=== PATIENT | male | born 1970 | race Caucasian/White ===

== ENCOUNTER 2021-03-02 13:07 | Inpatient (IN) ==
[2021-03-02 13:28] LABS: Basophils # 0.1 10*3/uL (0.0-0.2); Basophils % 0.9 % (0.0-0.8); Eosinophils # 0.5 10*3/uL (0.0-0.87); Eosinophils % 5.5 % (0.00-10.9); Hematocrit 31.6 VOL% (42.0-52.0); Hemoglobin 10.1 GM/DL (14.0-18.0); Immature Granulocytes Absolute 0.09 #; Lymphocytes # 0.5 10*3/uL (1.4-4.0); Lymphocytes % 5.7 % (21.2-54.2); Mean Corpuscular Volume 92.1 FL (87-102); Mean Platelet Volume 10.5 FL (9.6-12.0); Monocytes % 6.9 % (1.7-12.7); Platelet Count 295 T/CUMM (130-400); Red Blood Count 3.43 MC/CUMM (3.8-5.5); Red Cell Distribution Width 14.6 % (9.3-17.3); White Blood Count 9.3 T/CUMM (4-12)
[2021-03-02] MEDS ORDERED: FUROSEMIDE 100 MG/10 ML VIAL IV STA (13:45)
[2021-03-02 14:01] LABS: Albumin 2.9 G/DL (3.4-5.0); Bilirubin,Total 0.8 MG/DL (0.2-1.0); Calcium 6.6 MG/DL (8.5-10.1); Osmolality,Calculated 316.5 MOS/KG (273-304); Potassium 4.4 MMOL/L (3.5-5.1); Total Protein 7.1 G/DL (6.4-8.2)
[2021-03-02] MEDS ORDERED: DEXTROSE 50% 25 GM/50 ML VIAL IV PRN (15:18)
[2021-03-02] MEDS ORDERED: ONDANSETRON 4 MG/2 ML VIAL IV PRN (15:18)
[2021-03-02] MEDS ORDERED: ZALEPLON 5 MG CAPSULE PO PRN (15:18)
[2021-03-02] MEDS ORDERED: ACETAMINOPHEN 325 MG TABLET PO PRN (15:18)
[2021-03-02] MEDS ORDERED: GLUCAGON 1 MG VIAL IM PRN (15:18)
[2021-03-02 17:44] LABS: Amorphous Crystals,Urine Occasional /HPF (Few); Bacteria,Urine Occasional /HPF (Few); Bilirubin,Urine Negative (Negative); Blood, Urine Moderate mg/dL (Negative); Glucose,Urine (UA) Negative (Negative); Ketones,Urine Negative (Negative); Mucus,Urine Occasional /LPF (Occasional); Nitrite,Urine Negative (Negative); Protein,Urine >=500 MG/DL; RBC,Urine 1 /HPF (0-4); Squamous Epithelial Cell,Urine Occasional /HPF (0-10); Urine Appearance CLOUDY (Clear); Urine Color Yellow (Yellow); Urine Specific Gravity 1.011 (1.001-1.035); Urine Urobilinogen < 2.0 EU/DL (0.2-1.0); WBC,Urine 2 /HPF (0-6)
[2021-03-02] MEDS: INSULIN REGULAR 100 UNIT/ML SUBCUT SCH ×2 (19:04→20:52)
[2021-03-02] MEDS: HEPARIN 5,000 UNIT/1 ML VIAL SUBCUT SCH (19:12)
[2021-03-03] MEDS: HEPARIN 5,000 UNIT/1 ML VIAL SUBCUT SCH ×2 (04:15→17:02)
[2021-03-03 05:59] LABS: Basophils # 0.1 10*3/uL (0.0-0.2); Basophils % 1.1 % (0.0-0.8); Eosinophils # 0.8 10*3/uL (0.0-0.87); Eosinophils % 9.2 % (0.00-10.9); Hematocrit 29.3 VOL% (42.0-52.0); Hemoglobin 9.2 GM/DL (14.0-18.0); Immature Granulocytes % 1.4 %; Immature Granulocytes Absolute 0.12 #; Lymphocytes # 0.6 10*3/uL (1.4-4.0); Lymphocytes % 6.9 % (21.2-54.2); Mean Corpuscular HGB Conc 31.4 GM/DL (32-36); Mean Corpuscular Volume 92.7 FL (87-102); Mean Platelet Volume 10.8 FL (9.6-12.0); Monocytes % 8.1 % (1.7-12.7); Neutrophils % 73.3 % (38.7-73.9); Platelet Count 270 T/CUMM (130-400); Red Blood Count 3.16 MC/CUMM (3.8-5.5); Red Cell Distribution Width 14.6 % (9.3-17.3); White Blood Count 8.8 T/CUMM (4-12)
[2021-03-03 06:41] LABS: Albumin 2.7 G/DL (3.4-5.0); Bilirubin,Total 0.8 MG/DL (0.2-1.0); Calcium 6.6 MG/DL (8.5-10.1); Osmolality,Calculated 317.5 MOS/KG (273-304); Potassium 4.4 MMOL/L (3.5-5.1); Risk Ratio 2.49; Total Protein 6.4 G/DL (6.4-8.2); VLDL CHOLESTEROL 27.2 MG/DL
[2021-03-03] MEDS: ATORVASTATIN 80 MG TABLET PO SCH (08:30)
[2021-03-03] MEDS: amLODIPine 10 MG TABLET PO SCH (08:30)
[2021-03-03] MEDS: INSULIN REGULAR 100 UNIT/ML SUBCUT SCH ×4 (08:44→21:16)
[2021-03-03] MEDS ORDERED: STERILE WATER IV SCH ×2 (11:00→13:30)
[2021-03-03] MEDS ORDERED: SODIUM BICARB IV SCH ×2 (11:00→13:30)
[2021-03-03] MEDS: SODIUM BICARB INJ 150 MEQ in STERILE WATER INJ 850 ML IV SCH (14:22)
[2021-03-03 17:15] LABS: Bacteria,Urine Occasional /HPF (Few); Bilirubin,Urine Negative (Negative); Blood, Urine Moderate mg/dL (Negative); Glucose,Urine (UA) Negative (Negative); Ketones,Urine Negative (Negative); Nitrite,Urine Negative (Negative); Protein,Urine >=500 MG/DL; RBC,Urine 1 /HPF (0-4); Squamous Epithelial Cell,Urine Occasional /HPF (0-10); Urine Appearance Slightly Hazy (Clear); Urine Color Yellow (Yellow); Urine Specific Gravity 1.012 (1.001-1.035); Urine Urobilinogen < 2.0 EU/DL (0.2-1.0); WBC,Urine 7 /HPF (0-6)
[2021-03-04] MEDS: HEPARIN 5,000 UNIT/1 ML VIAL SUBCUT SCH (04:00)
[2021-03-04] MEDS: SODIUM BICARB INJ 150 MEQ in STERILE WATER INJ 850 ML IV SCH (05:17)
[2021-03-04 05:28] LABS: Basophils # 0.1 10*3/uL (0.0-0.2); Eosinophils # 0.7 10*3/uL (0.0-0.87); Eosinophils % 8.1 % (0.00-10.9); Hematocrit 28.1 VOL% (42.0-52.0); Hemoglobin 9.1 GM/DL (14.0-18.0); Immature Granulocytes Absolute 0.08 #; Lymphocytes # 0.7 10*3/uL (1.4-4.0); Lymphocytes % 8.3 % (21.2-54.2); Mean Corpuscular HGB Conc 32.4 GM/DL (32-36); Mean Corpuscular Volume 91.5 FL (87-102); Mean Platelet Volume 11.1 FL (9.6-12.0); Monocytes % 8.5 % (1.7-12.7); Neutrophils % 73.1 % (38.7-73.9); Platelet Count 244 T/CUMM (130-400); Red Blood Count 3.07 MC/CUMM (3.8-5.5); Red Cell Distribution Width 14.7 % (9.3-17.3)
[2021-03-04 06:03] LABS: Albumin 2.6 G/DL (3.4-5.0); Bilirubin,Total 0.6 MG/DL (0.2-1.0); Calcium 6.2 MG/DL (8.5-10.1); Osmolality,Calculated 322.4 MOS/KG (273-304); Potassium 4.4 MMOL/L (3.5-5.1); Total Protein 6.4 G/DL (6.4-8.2)
[2021-03-04] MEDS: INSULIN REGULAR 100 UNIT/ML SUBCUT SCH ×2 (07:18→12:20)
[2021-03-04] MEDS: ATORVASTATIN 80 MG TABLET PO SCH (08:35)
[2021-03-04] MEDS: amLODIPine 10 MG TABLET PO SCH (08:35)
[2021-03-04 12:14] VITALS: BP 139/72
[2021-03-04] MEDS ORDERED: CALCIUM (CARBONATE) 500 MG TABLET PO SCH (15:00)
[2021-03-04] MEDS ORDERED: SODIUM BICARBONATE 650 MG TABLET PO SCH (15:00)
[2021-03-04] MEDS ORDERED: FUROSEMIDE 80 MG TABLET PO SCH (16:00)
[2021-03-05] MEDS ORDERED: metOLazone 5 MG TABLET PO SCH (09:00)
== END 2021-03-04 13:49 | disposition home or self-care (01) | DRG 683 ==
LOC: N.ED 13:07 → N.EDINP 15:19 → SUATTDRO 15:19 → N.EDINP 17:50 → N.5E 18:25
PROVIDERS: ADMIT Internal Medicine; ATTEND Internal Medicine

== ENCOUNTER 2021-03-24 06:15 | Inpatient (IN) ==
[2021-03-21 12:23] LABS: Basophils # 0.1 10*3/uL (0.0-0.2); Basophils % 0.6 % (0.0-0.8); Eosinophils # 0.6 10*3/uL (0.0-0.87); Eosinophils % 6.2 % (0.00-10.9); Hematocrit 28.2 VOL% (42.0-52.0); Hemoglobin 8.9 GM/DL (14.0-18.0); Immature Granulocytes % 0.8 %; Immature Granulocytes Absolute 0.08 #; Lymphocytes # 0.5 10*3/uL (1.4-4.0); Lymphocytes % 4.8 % (21.2-54.2); Mean Corpuscular HGB Conc 31.6 GM/DL (32-36); Mean Corpuscular Volume 93.7 FL (87-102); Mean Platelet Volume 11.2 FL (9.6-12.0); Monocytes % 10.2 % (1.7-12.7); Neutrophils % 77.4 % (38.7-73.9); Platelet Count 295 T/CUMM (130-400); Red Blood Count 3.01 MC/CUMM (3.8-5.5); Red Cell Distribution Width 13.5 % (9.3-17.3); White Blood Count 9.5 T/CUMM (4-12)
[2021-03-21 13:01] LABS: Calcium 5.9 MG/DL (8.5-10.1); Osmolality,Calculated 332.8 MOS/KG (273-304)
[2021-03-21 13:02] LABS: Potassium 5.5 MMOL/L (3.5-5.1)
[2021-03-21 15:09] LABS: Eosinophils 4 % (0-10); Lymphocytes 2 % (20-55); Segmented Neutrophils 94 % (50-85); Total Cells Counted 100
[2021-03-21 15:11] LABS: Platelet Estimate Increased
[2021-03-21 15:13] LABS: Burr Cells Few; Toxic Granulation 1+
[2021-03-24 07:08] LABS: Hematocrit 28.6 VOL% (42.0-52.0)
[2021-03-24] MEDS ORDERED: SODIUM CHLORIDE 0.9% 250 ML IV SCH (08:00)
[2021-03-24] MEDS ORDERED: HEPARIN 5,000 UNIT/1 ML VIAL ONE (10:05)
[2021-03-24] MEDS ORDERED: BUPIVACAINE MPF 0.25% 30 ML VIAL ONE (10:05)
[2021-03-24] MEDS ORDERED: LIDOCAINE 1%/EPI INJ 20 ML VIAL ONE (10:06)
[2021-03-24] MEDS ORDERED: HEPARIN 10,000 UNIT/10 ML VIAL ONE (10:11)
[2021-03-24] MEDS ORDERED: TISSUE ADHESIVE 1 EACH APPLICATOR TOP ONE (11:14)
[2021-03-24] MEDS ORDERED: ACETAMINOPHEN 325 MG TABLET PO PRN (11:18)
[2021-03-24 13:04] LABS: Hepatitis B Core IgM Quant 0.13 Index; Hepatitis B Surface Ag Quant < 0.10 Index; Hepatitis B Surface Ag Result Non-Reactive (NonReactive); Hepatitis C Virus Ab Quant 0.11 Index; Hepatitis C Virus Ab Result Non-Reactive (NonReactive)
[2021-03-24] MEDS ORDERED: HEPARIN 10,000 UNIT/10 ML VIAL IV PRN (15:25)
[2021-03-24] MEDS ORDERED: DEXTROSE 50% 25 GM/50 ML VIAL IV PRN (15:38)
[2021-03-24] MEDS ORDERED: GLUCAGON 1 MG VIAL IM PRN (15:38)
[2021-03-24] MEDS: LACTATED RINGERS 1,000 ML IV SCH (18:52)
[2021-03-24] MEDS: INSULIN LISPRO 100 UNIT/ML SUBCUT SCH ×2 (18:53→20:48)
[2021-03-25] MEDS: LACTATED RINGERS 1,000 ML IV SCH ×2 (04:45→10:52)
[2021-03-25 06:51] LABS: Basophils # 0.1 10*3/uL (0.0-0.2); Basophils % 0.7 % (0.0-0.8); Eosinophils # 0.2 10*3/uL (0.0-0.87); Eosinophils % 1.7 % (0.00-10.9); Hematocrit 29.3 VOL% (42.0-52.0); Hemoglobin 9.3 GM/DL (14.0-18.0); Immature Granulocytes % 0.6 %; Immature Granulocytes Absolute 0.06 #; Lymphocytes # 0.4 10*3/uL (1.4-4.0); Lymphocytes % 4.4 % (21.2-54.2); Mean Corpuscular HGB Conc 31.7 GM/DL (32-36); Mean Corpuscular Volume 90.4 FL (87-102); Mean Platelet Volume 11.4 FL (9.6-12.0); Monocytes % 10.3 % (1.7-12.7); Neutrophils % 82.3 % (38.7-73.9); Platelet Count 315 T/CUMM (130-400); Red Blood Count 3.24 MC/CUMM (3.8-5.5); Red Cell Distribution Width 13.7 % (9.3-17.3); White Blood Count 9.6 T/CUMM (4-12)
[2021-03-25 07:25] LABS: Lymphocytes 3 % (20-55); Segmented Neutrophils 92 % (50-85); Total Cells Counted 100
[2021-03-25 07:26] LABS: Calcium 6.6 MG/DL (8.5-10.1); Osmolality,Calculated 312.2 MOS/KG (273-304); Potassium 4.5 MMOL/L (3.5-5.1)
[2021-03-25 07:26] LABS: Hypochromasia Slight; Ovalocytes Slight
[2021-03-25 07:27] LABS: Platelet Estimate Normal
[2021-03-25] MEDS: ATORVASTATIN 80 MG TABLET PO SCH (08:13)
[2021-03-25] MEDS: PANTOPRAZOLE 40 MG TABLET PO SCH (08:13)
[2021-03-25] MEDS: ONDANSETRON 4 MG/2 ML VIAL IV PRN ×3 (08:13→22:17)
[2021-03-25] MEDS: INSULIN LISPRO 100 UNIT/ML SUBCUT SCH ×4 (08:59→22:17)
[2021-03-25] MEDS ORDERED: amLODIPine 10 MG TABLET PO SCH (09:00)
[2021-03-25] MEDS ORDERED: ASPIRIN CHEW 81 MG TABLET PO ONE ×2 (12:03→12:04)
[2021-03-25] MEDS ORDERED: METOPROLOL TARTRATE 5 MG/5 ML VIAL IV ONE ×4 (12:11→12:30)
[2021-03-25] MEDS ORDERED: ASPIRIN 325 MG TABLET PO ONE (12:12)
[2021-03-25] MEDS ORDERED: ASPIRIN EC 325 MG TABLET PO ONE ×2 (13:00→13:02)
[2021-03-25 13:05] LABS: CKMB % 0.8 %; Troponin I < 0.015 NG/ML (0.00-0.045)
[2021-03-25] MEDS ORDERED: ENOXAPARIN 120 MG/0.8 ML SYRINGE SUBCUT ONE (13:08)
[2021-03-25] MEDS: COLCHICINE 0.6 MG CAPSULE PO SCH ×2 (14:19→22:17)
[2021-03-25] MEDS ORDERED: ALBUMIN 25% 12.5 GM/50 ML VIAL IV ONE ×2 (16:19→17:00)
[2021-03-25 16:47] LABS: Calcium 7.3 MG/DL (8.5-10.1); Osmolality,Calculated 296.1 MOS/KG (273-304); Potassium 4.5 MMOL/L (3.5-5.1)
[2021-03-25] MEDS ORDERED: SODIUM CHLORIDE 0.9% 300 ML IV ONE (17:01)
[2021-03-25 17:28] LABS: CKMB % 0.8 %; Troponin I < 0.015 NG/ML (0.00-0.045)
[2021-03-25] MEDS: METOPROLOL TARTRATE 25 MG TABLET PO SCH (23:10)
[2021-03-26] MEDS ORDERED: SODIUM CHLORIDE 0.9% 250 ML IV ONE ×4 (01:12→16:11)
[2021-03-26 05:22] LABS: Basophils % 0.2 % (0.0-0.8); Eosinophils % 0.1 % (0.00-10.9); Hematocrit 29.1 VOL% (42.0-52.0); Hemoglobin 9.1 GM/DL (14.0-18.0); Immature Granulocytes % 1.2 %; Immature Granulocytes Absolute 0.15 #; Lymphocytes # 0.5 10*3/uL (1.4-4.0); Lymphocytes % 4.4 % (21.2-54.2); Mean Corpuscular HGB Conc 31.3 GM/DL (32-36); Mean Corpuscular Volume 93.3 FL (87-102); Mean Platelet Volume 12.1 FL (9.6-12.0); Monocytes % 8.8 % (1.7-12.7); NRBC # 0.02 10*3/uL; Neutrophils % 85.3 % (38.7-73.9); Platelet Count 307 T/CUMM (130-400); Red Blood Count 3.12 MC/CUMM (3.8-5.5); White Blood Count 12.2 T/CUMM (4-12)
[2021-03-26 05:46] LABS: Calcium 6.9 MG/DL (8.5-10.1); Osmolality,Calculated 296.2 MOS/KG (273-304); Potassium 4.8 MMOL/L (3.5-5.1)
[2021-03-26 06:01] LABS: Troponin I 0.026 NG/ML (0.00-0.045)
[2021-03-26] MEDS: LACTATED RINGERS 1,000 ML IV SCH ×4 (06:10→21:37)
[2021-03-26 06:20] LABS: Anisocytosis 1+; Burr Cells Few; Macrocytosis Slight; Platelet Estimate Normal
[2021-03-26] MEDS: ATORVASTATIN 80 MG TABLET PO SCH (09:15)
[2021-03-26] MEDS: INSULIN LISPRO 100 UNIT/ML SUBCUT SCH ×4 (09:15→23:24)
[2021-03-26] MEDS: PANTOPRAZOLE 40 MG TABLET PO SCH (09:15)
[2021-03-26] MEDS: METOPROLOL TARTRATE 25 MG TABLET PO SCH (09:15)
[2021-03-26] MEDS: COLCHICINE 0.6 MG CAPSULE PO SCH ×2 (09:15→23:23)
[2021-03-26] MEDS ORDERED: WARFARIN 5 MG TABLET PO ONE (12:31)
[2021-03-26] MEDS ORDERED: ALBUMIN 5% 12.5 GM/250 ML VIAL IV ONE (16:30)
[2021-03-26] MEDS ORDERED: SODIUM CHLORIDE 0.9% 1,000 ML IV ONE ×2 (17:35→18:35)
[2021-03-26] MEDS ORDERED: WARFARIN 5 MG TABLET PO SCH (18:00)
[2021-03-26] MEDS: PHENYLEPHRINE DRIP 40 MG/250 ML PREMIX IV PRN (20:51)
[2021-03-26] MEDS: METOPROLOL SUCCINATE XL 25 MG TABLET PO SCH (23:24)
[2021-03-27] MEDS ORDERED: VECURONIUM 10 MG VIAL IV ONE ×2 (01:47→01:53)
[2021-03-27] MEDS ORDERED: ETOMIDATE 20 MG/10 ML VIAL IV ONE ×2 (01:48→01:49)
[2021-03-27] MEDS ORDERED: HYDROCORTISONE 100 MG VIAL IV ONE (02:05)
[2021-03-27] MEDS ORDERED: HYDROCORTISONE 100 MG VIAL ONE (02:05)
[2021-03-27] MEDS ORDERED: NOREPINEPHRINE 4 MG/4 ML VIAL IV ONE (02:07)
[2021-03-27] MEDS ORDERED: NOREPINEPHRINE 8 MG in SODIUM CHLORIDE 0.9% 242 ML IV PRN (02:07)
[2021-03-27 02:32] LABS: Basophils # 0.1 10*3/uL (0.0-0.2); Basophils % 0.3 % (0.0-0.8); Eosinophils % 0.1 % (0.00-10.9); Hematocrit 33.2 VOL% (42.0-52.0); Hemoglobin 10.3 GM/DL (14.0-18.0); Immature Granulocytes % 2.9 %; Lymphocytes # 1.2 10*3/uL (1.4-4.0); Lymphocytes % 7.2 % (21.2-54.2); Monocytes % 10.5 % (1.7-12.7); NRBC # 0.16 10*3/uL; Platelet Count 349 T/CUMM (130-400); Red Blood Count 3.46 MC/CUMM (3.8-5.5); Red Cell Distribution Width 14.4 % (9.3-17.3)
[2021-03-27] MEDS ORDERED: DIGOXIN 0.5 MG/2 ML AMP ONE (02:50)
[2021-03-27] MEDS ORDERED: DIGOXIN 0.5 MG/2 ML AMP IV ONE ×2 (02:51→15:51)
[2021-03-27 03:07] LABS: Albumin 2.9 G/DL (3.4-5.0); Bilirubin,Direct 0.62 MG/DL (0.0-0.20); Bilirubin,Indirect 0.6 MG/DL (0.0-1.0); Bilirubin,Total 1.2 MG/DL (0.2-1.0); Total Protein 6.9 G/DL (6.4-8.2)
[2021-03-27 03:09] LABS: Allen Test Positive; Pt O2 Delivery Device Ventilator
[2021-03-27 03:12] LABS: ABG Base Excess -11.8 MMOL/L (-2.5-2.5); ABG Oxygen Saturation 89.1 % (95-100); ABG PCO2 47.4 MM HG (35-48); ABG PO2 75.5 MM HG (80-95); ABG TCO2 15.9 MMOL/L (23-27)
[2021-03-27 03:13] LABS: ABG PH 7.158 (7.35-7.45)
[2021-03-27] MEDS ORDERED: SODIUM BICARBONATE 50 MEQ/50 ML VIAL IV ONE ×3 (03:19→08:24)
[2021-03-27 03:22] LABS: Alanine Aminotransferase 2797 U/L (16-61); Albumin 2.8 G/DL (3.4-5.0); Alkaline Phosphatase 504 U/L (45-117); Aspartate Amino Transferase 4836 U/L (0-37); Blood Urea Nitrogen 86 MG/DL (7-18); CKMB % 1.4 %; Calcium 7.4 MG/DL (8.5-10.1); Carbon Dioxide 14 MMOL/L (21-32); Estimated Glom Filtration Rate 6 ML/MIN; Glucose 152 MG/DL (74-106); Osmolality,Calculated 303.7 MOS/KG (273-304); Potassium 4.8 MMOL/L (3.5-5.1); Sodium 138 MMOL/L (136-145); Troponin I < 0.015 NG/ML (0.00-0.045)
[2021-03-27] MEDS ORDERED: EPINEPHrine 1 MG/10 ML SYRINGE ONE (03:31)
[2021-03-27] MEDS ORDERED: CALCIUM CHLORIDE 1,000 MG/10 ML VIAL IV ONE (03:31)
[2021-03-27] MEDS ORDERED: SODIUM BICARBONATE 50 MEQ/50 ML SYRINGE IV ONE (03:31)
[2021-03-27 04:15] LABS: Glucose,Pericardial Fluid 129 MG/DL
[2021-03-27] MEDS: MIDAZOLAM 100 MG in SODIUM CHLORIDE 0.9% 80 ML IV PRN ×2 (05:26→14:01)
[2021-03-27 06:18] LABS: Allen Test Positive; Pt O2 Delivery Device Ventilator
[2021-03-27 06:19] LABS: ABG Base Excess -8.1 MMOL/L (-2.5-2.5); ABG HCO3 17.8 MMOL/L (20-26); ABG Oxygen Saturation 93.5 % (95-100); ABG PCO2 37.7 MM HG (35-48); ABG PH 7.286 (7.35-7.45); ABG PO2 78.8 MM HG (80-95); ABG TCO2 16.6 MMOL/L (23-27)
[2021-03-27 07:59] LABS: Albumin 2.6 G/DL (3.4-5.0); Bilirubin,Total 1.4 MG/DL (0.2-1.0); Calcium 6.6 MG/DL (8.5-10.1); Osmolality,Calculated 309.5 MOS/KG (273-304); Total Protein 6.7 G/DL (6.4-8.2)
[2021-03-27] MEDS: INSULIN LISPRO 100 UNIT/ML SUBCUT SCH ×4 (08:56→22:14)
[2021-03-27] MEDS: PANTOPRAZOLE 40 MG TABLET PO SCH (08:57)
[2021-03-27] MEDS: ATORVASTATIN 80 MG TABLET PO SCH (08:57)
[2021-03-27] MEDS: COLCHICINE 0.6 MG CAPSULE PO SCH (08:57)
[2021-03-27] MEDS: METOPROLOL SUCCINATE XL 25 MG TABLET PO SCH (08:57)
[2021-03-27] MEDS: PHENYLEPHRINE DRIP 40 MG/250 ML PREMIX IV PRN (09:20)
[2021-03-27 09:23] LABS: INR 2.5; PT Patient Result 25.9 SECS (10.5-12.0); Partial Thromboplastin Time 39.6 SECS (23.9-33.8)
[2021-03-27 10:11] LABS: ABG Base Excess -6.3 MMOL/L (-2.5-2.5); ABG HCO3 19.2 MMOL/L (20-26); ABG Oxygen Saturation 97.4 % (95-100); ABG PCO2 30.6 MM HG (35-48); ABG PH 7.375 (7.35-7.45); ABG PO2 99.2 MM HG (80-95); ABG TCO2 16.3 MMOL/L (23-27); Allen Test Positive; Pt O2 Delivery Device Ventilator
[2021-03-27] MEDS: METOPROLOL TARTRATE 25 MG TABLET PO SCH (15:58)
[2021-03-27] MEDS ORDERED: SODIUM CHLORIDE 0.9% 1,000 ML IV SCH (16:30)
[2021-03-28] MEDS: COLCHICINE 0.6 MG CAPSULE PO SCH ×3 (00:14→22:28)
[2021-03-28] MEDS: METOPROLOL TARTRATE 25 MG TABLET PO SCH (00:29)
[2021-03-28] MEDS: MIDAZOLAM 100 MG in SODIUM CHLORIDE 0.9% 80 ML IV PRN ×3 (02:16→19:00)
[2021-03-28] MEDS: PHENYLEPHRINE DRIP 40 MG/250 ML PREMIX IV PRN ×2 (02:17→13:06)
[2021-03-28 04:24] LABS: Basophils % 0.2 % (0.0-0.8); Eosinophils % 0.1 % (0.00-10.9); Hematocrit 34.5 VOL% (42.0-52.0); Hemoglobin 11.3 GM/DL (14.0-18.0); Immature Granulocytes % 1.5 %; Immature Granulocytes Absolute 0.26 #; Lymphocytes # 0.6 10*3/uL (1.4-4.0); Lymphocytes % 3.2 % (21.2-54.2); Mean Corpuscular HGB Conc 32.8 GM/DL (32-36); Mean Corpuscular Volume 90.8 FL (87-102); Mean Platelet Volume 11.8 FL (9.6-12.0); Monocytes % 8.6 % (1.7-12.7); NRBC # 0.47 10*3/uL; Neutrophils % 86.4 % (38.7-73.9); Platelet Count 397 T/CUMM (130-400); Red Cell Distribution Width 14.6 % (9.3-17.3); White Blood Count 17.7 T/CUMM (4-12)
[2021-03-28 04:26] LABS: ABG Base Excess -8.8 MMOL/L (-2.5-2.5); ABG HCO3 15.2 MMOL/L (20-26); ABG Oxygen Saturation 96.5 % (95-100); ABG PCO2 27.5 MM HG (35-48); ABG PH 7.361 (7.35-7.45); ABG PO2 97.6 MM HG (80-95); ABG TCO2 16.1 MMOL/L (23-27); Allen Test Positive; Pt O2 Delivery Device Ventilator
[2021-03-28 04:49] LABS: Hypochromasia Slight; Lymphocytes 5 % (20-55); Nucleated Red Blood Cells 3 (0-5); Segmented Neutrophils 87 % (50-85); Total Cells Counted 100
[2021-03-28 04:50] LABS: Microcytosis 1+; Polychromasia Slight
[2021-03-28 04:51] LABS: Platelet Estimate Normal
[2021-03-28 05:14] LABS: PT Patient Result 62.7 SECS (10.5-12.0)
[2021-03-28 05:15] LABS: INR 6.4
[2021-03-28 05:36] LABS: Albumin 2.2 G/DL (3.4-5.0); Bilirubin,Total 0.9 MG/DL (0.2-1.0); Osmolality,Calculated 317.3 MOS/KG (273-304); Potassium 4.5 MMOL/L (3.5-5.1); Thyroid Stimulating Hormone 3.91 uIU/ml (0.358-3.74); Total Protein 6.1 G/DL (6.4-8.2)
[2021-03-28 05:39] LABS: Calcium 5.3 MG/DL (8.5-10.1)
[2021-03-28] MEDS ORDERED: CALCIUM GLUCONATE 1,000 MG in SODIUM CHLORIDE 0.9% 100 ML IV ONE (06:12)
[2021-03-28] MEDS ORDERED: SODIUM CHLORIDE 0.9% 500 ML IV ONE (08:17)
[2021-03-28] MEDS: INSULIN LISPRO 100 UNIT/ML SUBCUT SCH ×3 (08:56→18:03)
[2021-03-28] MEDS: ATORVASTATIN 80 MG TABLET PO SCH (08:58)
[2021-03-28] MEDS: PANTOPRAZOLE 40 MG TABLET PO SCH (08:58)
[2021-03-28] MEDS ORDERED: CALCIUM GLUCONATE 2,000 MG in SODIUM CHLORIDE 0.9% 100 ML IV ONE (10:00)
[2021-03-28] MEDS: CITALOPRAM 20 MG TABLET PO SCH (11:33)
[2021-03-28] MEDS: PHYTONADIONE 5 MG/5 ML ORAL.SYR PO SCH (11:33)
[2021-03-28] MEDS: ALBUMIN 25% 25 GM/100 ML VIAL IV ONE (11:35)
[2021-03-28] MEDS ORDERED: SODIUM CHLORIDE 0.9% 500 ML IV PRN (17:30)
[2021-03-28] MEDS: DEXMEDETOMIDINE 400 MCG in SODIUM CHLORIDE 0.9% 96 ML IV PRN (22:11)
[2021-03-29] MEDS: INSULIN LISPRO 100 UNIT/ML SUBCUT SCH ×4 (02:14→18:31)
[2021-03-29] MEDS: PHENYLEPHRINE DRIP 40 MG/250 ML PREMIX IV PRN ×2 (02:15→15:19)
[2021-03-29 04:46] LABS: Allen Test Positive; Pt O2 Delivery Device Ventilator
[2021-03-29 04:47] LABS: ABG Base Excess -10.7 MMOL/L (-2.5-2.5); ABG Oxygen Saturation 98.9 % (95-100); ABG PCO2 24.6 MM HG (35-48); ABG TCO2 12.4 MMOL/L (23-27)
[2021-03-29 05:18] LABS: Basophils % 0.2 % (0.0-0.8); Eosinophils # 0.2 10*3/uL (0.0-0.87); Eosinophils % 1.8 % (0.00-10.9); Hematocrit 32.8 VOL% (42.0-52.0); Immature Granulocytes % 1.6 %; Lymphocytes # 0.6 10*3/uL (1.4-4.0); Lymphocytes % 4.8 % (21.2-54.2); Mean Corpuscular HGB Conc 30.5 GM/DL (32-36); Mean Corpuscular Volume 95.1 FL (87-102); Mean Platelet Volume 11.4 FL (9.6-12.0); Monocytes % 9.4 % (1.7-12.7); NRBC # 0.52 10*3/uL; Neutrophils % 82.2 % (38.7-73.9); Platelet Count 406 T/CUMM (130-400); Red Blood Count 3.45 MC/CUMM (3.8-5.5); Red Cell Distribution Width 14.8 % (9.3-17.3); White Blood Count 12.2 T/CUMM (4-12)
[2021-03-29 05:28] LABS: INR 4.8
[2021-03-29 05:29] LABS: PT Patient Result 48.3 SECS (10.5-12.0)
[2021-03-29] MEDS: MIDAZOLAM 100 MG in SODIUM CHLORIDE 0.9% 80 ML IV PRN ×2 (05:35→17:11)
[2021-03-29] MEDS: DEXMEDETOMIDINE 400 MCG in SODIUM CHLORIDE 0.9% 96 ML IV PRN ×2 (05:36→23:10)
[2021-03-29 05:46] LABS: Band Neutrophils 1 % (0-10); Eosinophils 5 % (0-10); Hypochromasia 1+; Lymphocytes 4 % (20-55); Microcytosis 1+; Nucleated Red Blood Cells 2 (0-5); Ovalocytes Slight; Segmented Neutrophils 81 % (50-85); Total Cells Counted 100
[2021-03-29 06:16] LABS: Albumin 2.6 G/DL (3.4-5.0); Bilirubin,Total 1.3 MG/DL (0.2-1.0); Calcium 5.9 MG/DL (8.5-10.1); Osmolality,Calculated 299.7 MOS/KG (273-304); Potassium 4.3 MMOL/L (3.5-5.1); Total Protein 6.2 G/DL (6.4-8.2)
[2021-03-29] MEDS: COLCHICINE 0.6 MG CAPSULE PO SCH ×2 (09:14→23:10)
[2021-03-29] MEDS: CALCIUM GLUCONATE 2,000 MG in SODIUM CHLORIDE 0.9% 100 ML IV SCH ×2 (09:14→16:30)
[2021-03-29] MEDS: CITALOPRAM 20 MG TABLET PO SCH (09:14)
[2021-03-29] MEDS: PANTOPRAZOLE 40 MG VIAL IV SCH (09:15)
[2021-03-29] MEDS: PHYTONADIONE 5 MG/5 ML ORAL.SYR PO SCH (09:17)
[2021-03-29] MEDS ORDERED: ALBUMIN 25% 25 GM/100 ML VIAL IV ONE (14:30)
[2021-03-29 14:31] LABS: HIV Antigen/Antibody Result Nonreactive (Nonreactive)
[2021-03-30] MEDS: INSULIN LISPRO 100 UNIT/ML SUBCUT SCH ×4 (01:18→18:21)
[2021-03-30 04:09] LABS: ABG Base Excess -4.8 MMOL/L (-2.5-2.5); ABG HCO3 20.4 MMOL/L (20-26); ABG Oxygen Saturation 98.5 % (95-100); ABG PCO2 24.6 MM HG (35-48); ABG PH 7.464 (7.35-7.45)
[2021-03-30] MEDS: MIDAZOLAM 100 MG in SODIUM CHLORIDE 0.9% 80 ML IV PRN ×2 (04:49→18:21)
[2021-03-30 06:00] LABS: Basophils % 0.3 % (0.0-0.8); Eosinophils # 0.3 10*3/uL (0.0-0.87); Eosinophils % 2.2 % (0.00-10.9); Hemoglobin 10.7 GM/DL (14.0-18.0); Immature Granulocytes % 3.6 %; Immature Granulocytes Absolute 0.42 #; Lymphocytes # 0.5 10*3/uL (1.4-4.0); Lymphocytes % 4.2 % (21.2-54.2); Mean Corpuscular HGB Conc 30.6 GM/DL (32-36); Mean Corpuscular Volume 96.4 FL (87-102); Mean Platelet Volume 11.7 FL (9.6-12.0); Monocytes % 11.8 % (1.7-12.7); NRBC # 0.78 10*3/uL; Neutrophils % 77.9 % (38.7-73.9); Platelet Count 304 T/CUMM (130-400); Red Blood Count 3.63 MC/CUMM (3.8-5.5); Red Cell Distribution Width 15.3 % (9.3-17.3); White Blood Count 11.6 T/CUMM (4-12)
[2021-03-30 06:17] LABS: Calcium 7.2 MG/DL (8.5-10.1); Osmolality,Calculated 288.2 MOS/KG (273-304); Potassium 4.1 MMOL/L (3.5-5.1)
[2021-03-30 06:20] LABS: Eosinophils 4 % (0-10); Lymphocytes 6 % (20-55); Nucleated Red Blood Cells 3 (0-5); Platelet Estimate Adequate; Segmented Neutrophils 75 % (50-85); Total Cells Counted 100
[2021-03-30 06:21] LABS: Hypochromasia Slight; Microcytosis Slight; PT Patient Result 21.9 SECS (10.5-12.0)
[2021-03-30] MEDS: DEXMEDETOMIDINE 400 MCG in SODIUM CHLORIDE 0.9% 96 ML IV PRN (07:05)
[2021-03-30] MEDS: CITALOPRAM 20 MG TABLET PO SCH (09:18)
[2021-03-30] MEDS: PANTOPRAZOLE 40 MG VIAL IV SCH (09:19)
[2021-03-30] MEDS: COLCHICINE 0.6 MG CAPSULE PO SCH ×2 (09:19→21:55)
[2021-03-30] MEDS ORDERED: PHENYLEPHRINE DRIP 40 MG/250 ML PREMIX IV PRN (09:25)
[2021-03-30] MEDS: CALCIUM GLUCONATE 2,000 MG in SODIUM CHLORIDE 0.9% 100 ML IV SCH ×2 (09:48→16:23)
[2021-03-30 10:51] LABS: Myeloperoxidase Antibody < 0.2 U
[2021-03-30] MEDS ORDERED: LIDOCAINE 1%/EPI INJ 20 ML VIAL ONE (14:04)
[2021-03-30] MEDS ORDERED: HEPARIN/NACL 0.9% 2 UNITS/ML 2,000 UNIT/1,000 ML BAG IV ONE (14:04)
[2021-03-30] MEDS: DOBUTamine 500 MG/250 ML PREMIX IV PRN (16:22)
[2021-03-30 16:42] LABS: VBG HCO3 22.9 MEQ/L (24-28); VBG Oxygen Saturation 57.9 %; VBG PCO2 42.9 MMHG (41-51); VBG PH 7.363; VBG PO2 34.8 MMHG (17-40); VBG Total CO2 22.5 MMOL/L
[2021-03-30 20:27] LABS: VBG Oxygen Saturation 62.7 %; VBG PCO2 41.6 MMHG (41-51); VBG PH 7.373; VBG PO2 36.1 MMHG (17-40); VBG Total CO2 22.3 MMOL/L
[2021-03-31] MEDS: INSULIN LISPRO 100 UNIT/ML SUBCUT SCH ×3 (01:27→13:46)
[2021-03-31 01:28] LABS: Basophils % 0.2 % (0.0-0.8); Eosinophils # 0.3 10*3/uL (0.0-0.87); Hematocrit 31.3 VOL% (42.0-52.0); Hemoglobin 9.4 GM/DL (14.0-18.0); Immature Granulocytes % 1.8 %; Immature Granulocytes Absolute 0.18 #; Lymphocytes # 0.6 10*3/uL (1.4-4.0); Lymphocytes % 5.6 % (21.2-54.2); Mean Corpuscular Volume 97.8 FL (87-102); Mean Platelet Volume 10.5 FL (9.6-12.0); Monocytes % 13.3 % (1.7-12.7); NRBC # 0.22 10*3/uL; Neutrophils % 76.1 % (38.7-73.9); Platelet Count 215 T/CUMM (130-400); Red Cell Distribution Width 15.3 % (9.3-17.3)
[2021-03-31 01:44] LABS: Calcium 7.6 MG/DL (8.5-10.1); Potassium 4.2 MMOL/L (3.5-5.1)
[2021-03-31 02:43] LABS: INR 1.7; PT Patient Result 18.8 SECS (10.5-12.0)
[2021-03-31] MEDS: DOBUTamine 500 MG/250 ML PREMIX IV PRN ×2 (03:00→09:22)
[2021-03-31 04:48] LABS: ABG Base Excess -4.2 MMOL/L (-2.5-2.5); ABG HCO3 20.9 MMOL/L (20-26); ABG Oxygen Saturation 97.1 % (95-100); ABG PCO2 37.8 MM HG (35-48); ABG PH 7.352 (7.35-7.45); ABG PO2 95.8 MM HG (80-95); ABG TCO2 19.3 MMOL/L (23-27); Allen Test Positive; Pt O2 Delivery Device Ventilator
[2021-03-31] MEDS ORDERED: MAGNESIUM SULF RIDER 2 GM/50 ML PREMIX IV ONE (08:43)
[2021-03-31] MEDS: CITALOPRAM 20 MG TABLET PO SCH (09:19)
[2021-03-31] MEDS: COLCHICINE 0.6 MG CAPSULE PO SCH ×2 (09:19→20:45)
[2021-03-31] MEDS: INSULIN GLARGINE 100 UNIT/ML SUBCUT SCH (09:19)
[2021-03-31] MEDS: PANTOPRAZOLE 40 MG VIAL IV SCH (09:19)
[2021-03-31] MEDS ORDERED: LIDOCAINE 1%/EPI INJ 20 ML VIAL ONE (10:18)
[2021-03-31] MEDS ORDERED: HEPARIN/NACL 0.9% 2 UNITS/ML 1,000 UNIT/500 ML BAG IV ONE (10:18)
[2021-03-31] MEDS ORDERED: EPINEPHrine 1 MG/ML VIAL ONE (10:42)
[2021-03-31] MEDS ORDERED: ceFAZolin 1,000 MG VIAL ONE (11:14)
[2021-03-31] MEDS ORDERED: CISATRACURIUM 10 MG/5 ML VIAL IV PRN (12:24)
[2021-03-31] MEDS: INSULIN REGULAR 100 UNIT/ML IV PRN ×2 (13:00→17:16)
[2021-03-31] MEDS: fentaNYL INJ 2,500 MCG in SODIUM CHLORIDE 0.9% 75 ML IV PRN (13:30)
[2021-03-31 13:38] LABS: INR 1.8; PT Patient Result 19.4 SECS (10.5-12.0)
[2021-03-31 13:50] LABS: High Sensitive Troponin I* 770.6 ng/L (0-78)
[2021-03-31 13:58] LABS: Albumin 1.9 G/DL (3.4-5.0); Bilirubin,Total 1.1 MG/DL (0.2-1.0); Calcium 7.2 MG/DL (8.5-10.1); Total Protein 5.2 G/DL (6.4-8.2)
[2021-03-31 13:59] LABS: Osmolality,Calculated 299.7 MOS/KG (273-304); Potassium 3.7 MMOL/L (3.5-5.1)
[2021-03-31 14:08] LABS: Total Protein 5.4 G/DL (6.4-8.2)
[2021-03-31] MEDS ORDERED: HYDROCORTISONE 100 MG VIAL IV SCH (14:30)
[2021-03-31] MEDS: methylPREDNISolone SOD SUC 40 MG/1 ML VIAL IV SCH ×2 (15:03→23:05)
[2021-03-31] MEDS: MINERAL OIL/PETROLATUM OPH OINT 3.5 GM TUBE BOTH EYES SCH ×2 (15:03→20:45)
[2021-03-31] MEDS ORDERED: ALBUMIN 25% 25 GM/100 ML VIAL IV ONE (16:30)
[2021-03-31 18:23] LABS: ABG HCO3 24.5 MMOL/L (20-26); ABG PCO2 42.5 MM HG (35-48); ABG PH 7.381 (7.35-7.45); ABG TCO2 23.3 MMOL/L (23-27)
[2021-03-31 18:49] LABS: CKMB % 2.6 %
[2021-03-31 18:53] LABS: High Sensitive Troponin I* 786.5 ng/L (0-78)
[2021-03-31 18:58] LABS: Calcium 7.8 MG/DL (8.5-10.1); Osmolality,Calculated 289.7 MOS/KG (273-304); Potassium 3.5 MMOL/L (3.5-5.1)
[2021-03-31 20:27] LABS: INR 1.8; PT Patient Result 19.8 SECS (10.5-12.0)
[2021-03-31 20:28] LABS: Partial Thromboplastin Time 50.4 SECS (23.9-33.8)
[2021-04-01 01:08] LABS: Calcium 7.6 MG/DL (8.5-10.1); Osmolality,Calculated 293.7 MOS/KG (273-304); Potassium 3.5 MMOL/L (3.5-5.1)
[2021-04-01 01:13] LABS: CKMB % 3.5 %; High Sensitive Troponin I* 772.1 ng/L (0-78)
[2021-04-01 01:30] LABS: INR 1.7; PT Patient Result 18.8 SECS (10.5-12.0); Partial Thromboplastin Time 40.5 SECS (23.9-33.8)
[2021-04-01] MEDS: MIDAZOLAM 100 MG in SODIUM CHLORIDE 0.9% 80 ML IV PRN (01:51)
[2021-04-01 05:31] LABS: ABG Base Excess -0.8 MMOL/L (-2.5-2.5); ABG HCO3 23.8 MMOL/L (20-26); ABG Oxygen Saturation 99.6 % (95-100); ABG PCO2 38.2 MM HG (35-48); ABG PH 7.402 (7.35-7.45); ABG TCO2 22.2 MMOL/L (23-27)
[2021-04-01 05:58] LABS: Eosinophils % 0.8 % (0.00-10.9); Hematocrit 25.5 VOL% (42.0-52.0); Hemoglobin 8.2 GM/DL (14.0-18.0); Immature Granulocytes % 8.4 %; Immature Granulocytes Absolute 0.33 #; Lymphocytes # 0.2 10*3/uL (1.4-4.0); Lymphocytes % 4.6 % (21.2-54.2); Mean Corpuscular HGB Conc 32.2 GM/DL (32-36); Mean Corpuscular Volume 92.4 FL (87-102); Mean Platelet Volume 10.9 FL (9.6-12.0); Monocytes % 7.9 % (1.7-12.7); NRBC # 0.05 10*3/uL; Neutrophils % 78.3 % (38.7-73.9); Platelet Count 127 T/CUMM (130-400); Red Blood Count 2.76 MC/CUMM (3.8-5.5); Red Cell Distribution Width 15.1 % (9.3-17.3); White Blood Count 3.9 T/CUMM (4-12)
[2021-04-01 06:08] LABS: Calcium 7.7 MG/DL (8.5-10.1); INR 1.7; Osmolality,Calculated 294.7 MOS/KG (273-304); PT Patient Result 18.6 SECS (10.5-12.0); Potassium 3.6 MMOL/L (3.5-5.1)
[2021-04-01 06:11] LABS: Eosinophils 2 % (0-10); Hypochromasia Slight; Lymphocytes 10 % (20-55); Platelet Estimate Normal; Segmented Neutrophils 83 % (50-85); Total Cells Counted 100
[2021-04-01] MEDS: methylPREDNISolone SOD SUC 40 MG/1 ML VIAL IV SCH ×3 (06:16→22:37)
[2021-04-01 07:41] LABS: CKMB % 4.2 %; High Sensitive Troponin I* 653.7 ng/L (0-78)
[2021-04-01] MEDS: PANTOPRAZOLE 40 MG VIAL IV SCH (08:40)
[2021-04-01] MEDS: INSULIN GLARGINE 100 UNIT/ML SUBCUT SCH (08:40)
[2021-04-01] MEDS: INSULIN REGULAR 100 UNIT/ML IV PRN ×2 (08:40→12:45)
[2021-04-01] MEDS: ENOXAPARIN 30 MG/0.3 ML SYRINGE SUBCUT SCH (08:40)
[2021-04-01] MEDS: CITALOPRAM 20 MG TABLET PO SCH (09:00)
[2021-04-01] MEDS: COLCHICINE 0.6 MG CAPSULE PO SCH ×2 (09:00→20:05)
[2021-04-01] MEDS: MINERAL OIL/PETROLATUM OPH OINT 3.5 GM TUBE BOTH EYES SCH ×3 (09:10→21:04)
[2021-04-01] MEDS: fentaNYL INJ 2,500 MCG in SODIUM CHLORIDE 0.9% 75 ML IV PRN ×2 (10:00→21:38)
[2021-04-01 13:22] LABS: INR 1.8
[2021-04-01 13:29] LABS: Calcium 7.9 MG/DL (8.5-10.1); Osmolality,Calculated 292.1 MOS/KG (273-304); Potassium 3.6 MMOL/L (3.5-5.1)
[2021-04-01 13:30] LABS: Partial Thromboplastin Time 41.9 SECS (23.9-33.8)
[2021-04-01] MEDS: DOBUTamine 500 MG/250 ML PREMIX IV PRN (15:05)
[2021-04-01 18:38] LABS: Calcium 8.1 MG/DL (8.5-10.1); Osmolality,Calculated 284.7 MOS/KG (273-304); Potassium 3.4 MMOL/L (3.5-5.1)
[2021-04-01 18:47] LABS: INR 1.9; PT Patient Result 20.9 SECS (10.5-12.0)
[2021-04-01 18:50] LABS: Partial Thromboplastin Time 78.6 SECS (23.9-33.8)
[2021-04-02] MEDS: INSULIN REGULAR 100 UNIT/ML IV PRN ×5 (00:28→20:05)
[2021-04-02 01:07] LABS: Osmolality,Calculated 289.5 MOS/KG (273-304); Potassium 3.6 MMOL/L (3.5-5.1)
[2021-04-02 01:09] LABS: INR 1.7; PT Patient Result 18.4 SECS (10.5-12.0); Partial Thromboplastin Time 40.9 SECS (23.9-33.8)
[2021-04-02] MEDS ORDERED: MAGNESIUM SULF RIDER 1 GM/100 ML PREMIX IV ONE (01:15)
[2021-04-02] MEDS: MIDAZOLAM 100 MG in SODIUM CHLORIDE 0.9% 80 ML IV PRN (02:01)
[2021-04-02 04:16] LABS: Basophils % 0.2 % (0.0-0.8); Hematocrit 27.1 VOL% (42.0-52.0); Hemoglobin 8.8 GM/DL (14.0-18.0); Immature Granulocytes % 0.9 %; Immature Granulocytes Absolute 0.06 #; Lymphocytes # 0.1 10*3/uL (1.4-4.0); Lymphocytes % 1.7 % (21.2-54.2); Mean Corpuscular HGB Conc 32.5 GM/DL (32-36); Mean Corpuscular Volume 90.3 FL (87-102); Mean Platelet Volume 10.8 FL (9.6-12.0); NRBC # 0.07 10*3/uL; Neutrophils % 89.2 % (38.7-73.9); Platelet Count 114 T/CUMM (130-400); Red Cell Distribution Width 15.4 % (9.3-17.3); White Blood Count 6.7 T/CUMM (4-12)
[2021-04-02 04:18] LABS: ABG Base Excess 0.8 MMOL/L (-2.5-2.5); ABG HCO3 25.4 MMOL/L (20-26); ABG Oxygen Saturation 96.8 % (95-100); ABG PCO2 40.1 MM HG (35-48); ABG PH 7.419 (7.35-7.45); ABG PO2 88.9 MM HG (80-95); ABG TCO2 26.6 MMOL/L (23-27)
[2021-04-02 04:33] LABS: INR 1.7; PT Patient Result 18.1 SECS (10.5-12.0)
[2021-04-02 04:34] LABS: Calcium 7.9 MG/DL (8.5-10.1); Osmolality,Calculated 289.7 MOS/KG (273-304); Potassium 3.7 MMOL/L (3.5-5.1)
[2021-04-02 04:40] LABS: CKMB % 5.2 %
[2021-04-02 04:43] LABS: High Sensitive Troponin I* 395.5 ng/L (0-78)
[2021-04-02] MEDS: methylPREDNISolone SOD SUC 40 MG/1 ML VIAL IV SCH ×2 (06:17→13:30)
[2021-04-02 06:51] LABS: Lymphocytes 4 % (20-55); Metamyelocytes 3 %; Platelet Estimate Decreased; Polychromasia Few; Segmented Neutrophils 88 % (50-85); Total Cells Counted 100
[2021-04-02 06:52] LABS: Hypochromasia 2+
[2021-04-02] MEDS: INSULIN GLARGINE 100 UNIT/ML SUBCUT SCH (08:30)
[2021-04-02] MEDS: PANTOPRAZOLE 40 MG VIAL IV SCH (08:30)
[2021-04-02] MEDS: ENOXAPARIN 30 MG/0.3 ML SYRINGE SUBCUT SCH (08:30)
[2021-04-02] MEDS: MINERAL OIL/PETROLATUM OPH OINT 3.5 GM TUBE BOTH EYES SCH ×3 (08:40→20:04)
[2021-04-02] MEDS: COLCHICINE 0.6 MG CAPSULE PO SCH ×2 (08:41→20:04)
[2021-04-02] MEDS: CITALOPRAM 20 MG TABLET PO SCH (08:41)
[2021-04-02] MEDS ORDERED: ALBUMIN 25% 25 GM/100 ML VIAL IV ONE (09:30)
[2021-04-03] MEDS: methylPREDNISolone SOD SUC 40 MG/1 ML VIAL IV SCH ×4 (00:02→23:30)
[2021-04-03] MEDS: INSULIN REGULAR 100 UNIT/ML IV PRN ×4 (00:04→20:45)
[2021-04-03] MEDS: hydrALAZINE 20 MG/1 ML VIAL IV PRN ×2 (04:15→09:41)
[2021-04-03 04:35] LABS: ABG Base Excess -0.6 MMOL/L (-2.5-2.5); ABG Oxygen Saturation 97.1 % (95-100); ABG PCO2 35.4 MM HG (35-48); ABG PH 7.429 (7.35-7.45); ABG PO2 84.7 MM HG (80-95); ABG TCO2 21.6 MMOL/L (23-27)
[2021-04-03 05:05] LABS: Basophils % 0.3 % (0.0-0.8); Hematocrit 27.9 VOL% (42.0-52.0); Hemoglobin 8.9 GM/DL (14.0-18.0); Immature Granulocytes % 1.2 %; Immature Granulocytes Absolute 0.07 #; Lymphocytes % 0.5 % (21.2-54.2); Mean Corpuscular HGB Conc 31.9 GM/DL (32-36); Mean Corpuscular Volume 92.4 FL (87-102); Mean Platelet Volume 11.3 FL (9.6-12.0); NRBC # 0.07 10*3/uL; Platelet Count 82 T/CUMM (130-400); Red Blood Count 3.02 MC/CUMM (3.8-5.5); Red Cell Distribution Width 15.5 % (9.3-17.3); White Blood Count 6.1 T/CUMM (4-12)
[2021-04-03 05:18] LABS: Calcium 8.1 MG/DL (8.5-10.1); Osmolality,Calculated 290.8 MOS/KG (273-304); Potassium 3.9 MMOL/L (3.5-5.1)
[2021-04-03 06:43] LABS: Band Neutrophils 5 % (0-10); Lymphocytes 2 % (20-55); Metamyelocytes 1 %; Segmented Neutrophils 92 % (50-85); Total Cells Counted 100
[2021-04-03 06:44] LABS: Macrocytosis Slight; Platelet Estimate Adequate; Polychromasia Slight
[2021-04-03] MEDS: COLCHICINE 0.6 MG CAPSULE PO SCH ×2 (08:31→20:44)
[2021-04-03] MEDS: CITALOPRAM 20 MG TABLET PO SCH (08:31)
[2021-04-03] MEDS: PANTOPRAZOLE 40 MG VIAL IV SCH (08:31)
[2021-04-03] MEDS: ENOXAPARIN 30 MG/0.3 ML SYRINGE SUBCUT SCH (08:31)
[2021-04-03] MEDS: INSULIN GLARGINE 100 UNIT/ML SUBCUT SCH (08:32)
[2021-04-03] MEDS: MEROPENEM 500 MG in SODIUM CHLORIDE 0.9% 100 ML IV SCH ×3 (08:33→23:45)
[2021-04-03] MEDS: MINERAL OIL/PETROLATUM OPH OINT 3.5 GM TUBE BOTH EYES SCH ×3 (09:05→20:45)
[2021-04-03] MEDS: INSULIN REGULAR DRIP 100 ML IV PRN (22:28)
[2021-04-04 04:52] LABS: ABG Base Excess -2.1 MMOL/L (-2.5-2.5); ABG Oxygen Saturation 98.8 % (95-100); ABG PCO2 34.9 MM HG (35-48); ABG PH 7.417 (7.35-7.45); ABG PO2 164.2 MM HG (80-95)
[2021-04-04 05:04] LABS: Basophils % 0.3 % (0.0-0.8); Hematocrit 26.6 VOL% (42.0-52.0); Hemoglobin 8.4 GM/DL (14.0-18.0); Immature Granulocytes % 0.3 %; Immature Granulocytes Absolute 0.01 #; Lymphocytes # 0.1 10*3/uL (1.4-4.0); Lymphocytes % 3.4 % (21.2-54.2); Mean Corpuscular HGB Conc 31.6 GM/DL (32-36); Mean Corpuscular Volume 93.7 FL (87-102); Mean Platelet Volume 12.2 FL (9.6-12.0); Monocytes % 4.7 % (1.7-12.7); NRBC # 0.04 10*3/uL; Neutrophils % 91.3 % (38.7-73.9); Red Blood Count 2.84 MC/CUMM (3.8-5.5)
[2021-04-04 05:07] LABS: Platelet Count 52 T/CUMM (130-400); White Blood Count 3.8 T/CUMM (4-12)
[2021-04-04 05:21] LABS: Calcium 7.9 MG/DL (8.5-10.1); Osmolality,Calculated 307.5 MOS/KG (273-304); Potassium 3.9 MMOL/L (3.5-5.1)
[2021-04-04 05:22] LABS: Lymphocytes 5 % (20-55); Platelet Estimate Decreased; Segmented Neutrophils 94 % (50-85); Total Cells Counted 100
[2021-04-04 05:23] LABS: Hypochromasia 1+; Microcytosis 1+
[2021-04-04 05:37] LABS: Albumin 2.2 G/DL (3.4-5.0); Bilirubin,Direct 0.82 MG/DL (0.0-0.20); Bilirubin,Indirect 0.8 MG/DL (0.0-1.0); Bilirubin,Total 1.6 MG/DL (0.2-1.0)
[2021-04-04] MEDS: methylPREDNISolone SOD SUC 40 MG/1 ML VIAL IV SCH ×3 (06:15→22:08)
[2021-04-04] MEDS: INSULIN GLARGINE 100 UNIT/ML SUBCUT SCH (08:52)
[2021-04-04] MEDS: CITALOPRAM 20 MG TABLET PO SCH (08:52)
[2021-04-04] MEDS: COLCHICINE 0.6 MG CAPSULE PO SCH ×2 (08:52→21:25)
[2021-04-04] MEDS: MINERAL OIL/PETROLATUM OPH OINT 3.5 GM TUBE BOTH EYES SCH ×3 (08:52→21:25)
[2021-04-04] MEDS: ENOXAPARIN 30 MG/0.3 ML SYRINGE SUBCUT SCH (08:52)
[2021-04-04] MEDS: PANTOPRAZOLE 40 MG VIAL IV SCH (08:52)
[2021-04-04] MEDS: cefTRIAXone 1,000 MG in SODIUM CHLORIDE 0.9% 100 ML IV SCH (08:53)
[2021-04-04] MEDS: ASPIRIN CHEW 81 MG TABLET PO SCH (10:16)
[2021-04-04] MEDS: INSULIN REGULAR DRIP 100 ML IV PRN (10:18)
[2021-04-04] MEDS ORDERED: MEROPENEM 500 MG in SODIUM CHLORIDE 0.9% 100 ML IV SCH (22:00)
[2021-04-05] MEDS: INSULIN LISPRO 100 UNIT/ML SUBCUT SCH ×6 (00:54→20:12)
[2021-04-05 05:23] LABS: Basophils % 0.2 % (0.0-0.8); Eosinophils % 0.2 % (0.00-10.9); Hematocrit 25.5 VOL% (42.0-52.0); Hemoglobin 8.4 GM/DL (14.0-18.0); Immature Granulocytes % 0.3 %; Immature Granulocytes Absolute 0.02 #; Lymphocytes # 0.2 10*3/uL (1.4-4.0); Lymphocytes % 2.4 % (21.2-54.2); Mean Corpuscular HGB Conc 32.9 GM/DL (32-36); Mean Corpuscular Volume 88.2 FL (87-102); Mean Platelet Volume 12.1 FL (9.6-12.0); Monocytes % 3.2 % (1.7-12.7); NRBC # 0.03 10*3/uL; Neutrophils % 93.7 % (38.7-73.9); Platelet Count 44 T/CUMM (130-400); Red Blood Count 2.89 MC/CUMM (3.8-5.5); Red Cell Distribution Width 15.1 % (9.3-17.3); White Blood Count 6.3 T/CUMM (4-12)
[2021-04-05 05:24] LABS: ABG Base Excess 0.1 MMOL/L (-2.5-2.5); ABG HCO3 24.6 MMOL/L (20-26); ABG PCO2 23.5 MM HG (35-48); ABG PH 7.569 (7.35-7.45); ABG TCO2 19.9 MMOL/L (23-27)
[2021-04-05 05:33] LABS: INR 1.6; PT Patient Result 17.7 SECS (10.5-12.0)
[2021-04-05 05:48] LABS: Calcium 7.5 MG/DL (8.5-10.1); Osmolality,Calculated 304.7 MOS/KG (273-304); Potassium 3.1 MMOL/L (3.5-5.1)
[2021-04-05 05:56] LABS: Hypochromasia 1+; Lymphocytes 3 % (20-55); Microcytosis 1+; Nucleated Red Blood Cells 2 (0-5); Platelet Estimate Decreased; Segmented Neutrophils 96 % (50-85); Total Cells Counted 100
[2021-04-05 06:06] LABS: Bilirubin,Direct 1.03 MG/DL (0.0-0.20); Bilirubin,Indirect 1.2 MG/DL (0.0-1.0); Bilirubin,Total 2.2 MG/DL (0.2-1.0)
[2021-04-05] MEDS: methylPREDNISolone SOD SUC 40 MG/1 ML VIAL IV SCH ×3 (06:45→21:35)
[2021-04-05] MEDS: COLCHICINE 0.6 MG CAPSULE PO SCH ×2 (09:10→20:12)
[2021-04-05] MEDS: ENOXAPARIN 30 MG/0.3 ML SYRINGE SUBCUT SCH (09:10)
[2021-04-05] MEDS: ASPIRIN CHEW 81 MG TABLET PO SCH (09:10)
[2021-04-05] MEDS: MINERAL OIL/PETROLATUM OPH OINT 3.5 GM TUBE BOTH EYES SCH ×3 (09:10→20:12)
[2021-04-05] MEDS: cefTRIAXone 1,000 MG in SODIUM CHLORIDE 0.9% 100 ML IV SCH (09:10)
[2021-04-05] MEDS: INSULIN GLARGINE 100 UNIT/ML SUBCUT SCH (09:10)
[2021-04-05] MEDS: CITALOPRAM 20 MG TABLET PO SCH (09:10)
[2021-04-05] MEDS: PANTOPRAZOLE 40 MG VIAL IV SCH (09:10)
[2021-04-05] MEDS: METOPROLOL TARTRATE 25 MG TABLET NG SCH ×2 (10:35→20:12)
[2021-04-05] MEDS ORDERED: LORazepam 2 MG/1 ML VIAL IV PRN (12:02)
[2021-04-05] MEDS ORDERED: LORazepam 2 MG/1 ML VIAL ONE (12:04)
[2021-04-05 21:41] LABS: HIT Interpretation Negative (Negative)
[2021-04-06] MEDS: INSULIN LISPRO 100 UNIT/ML SUBCUT SCH ×6 (00:58→20:30)
[2021-04-06 04:57] LABS: ABG Base Excess 0.1 MMOL/L (-2.5-2.5); ABG HCO3 24.5 MMOL/L (20-26); ABG PCO2 21.4 MM HG (35-48); ABG TCO2 19.1 MMOL/L (23-27); Allen Test Positive; Pt O2 Delivery Device Ventilator
[2021-04-06 05:00] LABS: ABG PH 7.595 (7.35-7.45)
[2021-04-06 05:43] LABS: Basophils % 0.1 % (0.0-0.8); Hematocrit 28.1 VOL% (42.0-52.0); Immature Granulocytes % 0.5 %; Immature Granulocytes Absolute 0.04 #; Lymphocytes # 0.2 10*3/uL (1.4-4.0); Lymphocytes % 2.1 % (21.2-54.2); Mean Corpuscular Volume 90.6 FL (87-102); Monocytes % 3.4 % (1.7-12.7); NRBC # 0.02 10*3/uL; Neutrophils % 93.9 % (38.7-73.9)
[2021-04-06 06:02] LABS: Albumin 1.8 G/DL (3.4-5.0); Bilirubin,Direct 0.65 MG/DL (0.0-0.20); Bilirubin,Indirect 0.9 MG/DL (0.0-1.0); Bilirubin,Total 1.5 MG/DL (0.2-1.0); Calcium 7.4 MG/DL (8.5-10.1); Osmolality,Calculated 308.5 MOS/KG (273-304); Platelet Count 71 T/CUMM (130-400); Potassium 3.1 MMOL/L (3.5-5.1); Total Protein 5.4 G/DL (6.4-8.2)
[2021-04-06 06:04] LABS: Lymphocytes 3 % (20-55); Nucleated Red Blood Cells 4 (0-5); Segmented Neutrophils 95 % (50-85); Total Cells Counted 100
[2021-04-06 06:05] LABS: Hypochromasia 1+; Microcytosis 1+; Platelet Estimate Decreased; Polychromasia Slight
[2021-04-06] MEDS: methylPREDNISolone SOD SUC 40 MG/1 ML VIAL IV SCH ×2 (06:40→13:10)
[2021-04-06] MEDS: INSULIN GLARGINE 100 UNIT/ML SUBCUT SCH (08:45)
[2021-04-06] MEDS: PANTOPRAZOLE 40 MG VIAL IV SCH (08:45)
[2021-04-06] MEDS: cefTRIAXone 1,000 MG in SODIUM CHLORIDE 0.9% 100 ML IV SCH (08:45)
[2021-04-06] MEDS: CITALOPRAM 20 MG TABLET PO SCH (08:50)
[2021-04-06] MEDS: COLCHICINE 0.6 MG CAPSULE PO SCH ×2 (08:50→20:30)
[2021-04-06] MEDS: METOPROLOL TARTRATE 25 MG TABLET NG SCH ×2 (08:50→20:30)
[2021-04-06] MEDS: ASPIRIN CHEW 81 MG TABLET PO SCH (08:50)
[2021-04-06] MEDS: MINERAL OIL/PETROLATUM OPH OINT 3.5 GM TUBE BOTH EYES SCH ×3 (08:55→20:30)
[2021-04-06 18:42] VITALS: BP 112/80
== END 2021-04-06 20:30 | DRG 673 ==
LOC: N.OR 06:15 → N.SDSINP 06:24 → SUATTDRO 15:39 → N.3E 18:14 → N.TELES 03-25 13:11 → N.ICU 03-26 17:37
PROVIDERS: ADMIT Emergency Medicine; ATTEND Internal Medicine